=== PATIENT | male | born 2000 | race Caucasian/White ===

== ENCOUNTER 2024-02-20 21:33 | Emergency (ER) | payer OTHER ==
[~2024-02-20] VITALS: Ht 175.3 cm; Wt 63.6 kg
[2024-02-20 21:38] VITALS: TEMP 98.1
[2024-02-20] MEDS ORDERED: diphenhydrAMINE 50 MG/ML 1 ML VIAL IV ONE (22:00)
[2024-02-20] MEDS ORDERED: NS 1,000 ML IV ONE (22:00)
[2024-02-20] MEDS ORDERED: methylPREDNISolone Sod Succ 125 MG/2 ML VIAL IV ONE (22:00)
[2024-02-20] MEDS ORDERED: PREDNISONE50 MG PO (22:54)
[2024-02-20] MEDS ORDERED: predniSONE 10 MG TAB PO ONE (23:00)
[2024-02-20 23:06] VITALS: BP 116/73; PULSE 57
== END 2024-02-20 23:18 | disposition home or self-care (01) ==
LOC: COL.ER 21:33
DX: T78.40XA Allergy, unspecified, initial encounter (principal); X58.XXXA Exposure to other specified factors, initial encounter
CPT/HCPCS: J1200; J2919; J7030; J7512